=== PATIENT | female | born 1990 | race Hispanic/Latino ===

== ENCOUNTER 2016-09-17 14:18 | Emergency (ER) | payer MEDICAID, OTHER ==
[2016-09-17 14:31] VITALS: BP 136/74; PULSE 118; RESP 16; TEMP 98.2; O2SAT 100
--- NOTE | 2016-09-17 14:57 | ED PDOC ---
HPI: Psych/Substance Abuse Time Seen by Provider: 09/17/16 14:54 Chief Complaint (Nursing): Psychiatric Evaluation Chief Complaint (Provider): depression History Per: Patient (26 y/o female here for psych evaluation. Patient states she has recently lost her job and has returned back to [place] to stay with her sister. Patient denies any SI/HI but notes feeling very low and high. States she is here to obtain a diagnosis for her symptoms. ) Past Medical History Reviewed: Historical Data, Nursing Documentation, Vital Signs Vital Signs: Last Vital Signs Temp 98.2 F 09/17/16 14:21 Pulse 118 H 09/17/16 14:21 Resp 16 09/17/16 14:21 BP 136/74 09/17/16 14:21 Pulse Ox 100 09/17/16 14:21 - Medical History PMH: Denies: Diabetes, Hepatitis, HIV, HTN, Seizures, Sexually Transmitted Disease - Family History Family History: States: No Known Family Hx - Home Medications Home Medications: Ambulatory Orders Medication Instructions Recorded No Known Home Med 05/10/16 - Allergies Allergies/Adverse Reactions: Allergies Allergy/AdvReac Type Severity Reaction Status Date / Time No Known Allergies Allergy Verified 11/02/14 16:52 Review of Systems ROS Statement: Except As Marked, All Systems Reviewed And Found Negative Physical Exam - Reviewed Nursing Documentation Reviewed: Yes Vital Signs Reviewed: Yes - Physical Exam Appears: Positive for: Well, Non-toxic, No Acute Distress Head Exam: Positive for: ATRAUMATIC, NORMAL INSPECTION, NORMOCEPHALIC Skin: Positive for: Normal Color, Warm, DRY Eye Exam: Positive for: EOMI, Normal appearance, PERRL ENT: Positive for: Normal ENT Inspection Neck: Positive for: Normal, Painless ROM Cardiovascular/Chest: Positive for: Regular Rate, Rhythm Respiratory: Positive for: CNT, Normal Breath Sounds Gastrointestinal/Abdominal: Positive for: Normal Exam, Bowel Sounds, Soft Back: Positive for: Normal Inspection Extremity: Positive for: Normal ROM Neurologic/Psych: Positive for: Alert, Oriented - ECG O2 Sat by Pulse Oximetry: 100 - Progress ED Course And Treament: Seen by crisis Patient cleared for d/c by Dr. Ordaz Diagnosis Adjustment Disorder Will give 10/24 9:00am d/w Randa's sister, Anna. Patient will f/u with [facility] services Disposition - Clinical Impression Clinical Impression: Adjustment disorder - Patient ED Disposition Is Patient to be Admitted: No - Disposition Disposition: Routine/Home Disposition Time: 17:52 Condition: FAIR Additional Instructions: FOLLOW UP WITH [address] [id number] ON 10/24/2016 AT 9: 00AM Instructions: Suicide Prevention for Children and Adolescents (ED)
== END 2016-09-17 18:27 | disposition home or self-care (01) ==
LOC: H.ER 14:18
DX: F43.20 Adjustment disorder, unspecified (principal)